=== PATIENT | male | born 1990 | race Caucasian/White ===

== ENCOUNTER 2019-07-13 15:09 | Inpatient (IN) | payer MEDICAID ==
[~2019-07-13] VITALS: Ht 177.8 cm; Wt 81.8 kg
[2019-07-13] MEDS ORDERED: COZAAR50 MG PO (15:16)
[2019-07-13] MEDS ORDERED: NORMODYNE / TR100 MG PO (15:16)
[2019-07-13] MEDS ORDERED: INDIGESTION MED (15:17)
[2019-07-13 16:17] LABS: BASOPHILS 0.2 % (0-2); EOSINOPHILS 4.4 % (0-7); HEMATOCRIT 50.1 % (42.0-54.0); HEMOGLOBIN 17.3 g/dL (13.5-17.5); IMMATURE GRANULOCYTES 0.2 % (0-5); LYMPHOCYTES 37.4 % (15-50); MCH 31.5 pg (26.0-34.0); MCHC 34.5 g/dL (31.0-37.0); MCV 91.1 fL (80.0-100.0); MEAN PLATELET VOLUME 10.5 fL (7.4-10.4); MONOCYTES 4.6 % (2-11); NEUTROPHILS 53.2 % (40-80); PLATELET COUNT 181 10x3/uL (130-400); RDW 12.7 % (11.5-14.5); WBC 6.6 10x3/uL (4.8-10.8)
[2019-07-13 16:30] LABS: CALC OSMOLALITY 280 mosm/kg (275-300); CALCIUM 9.3 mg/dL (8.5-10.1); CARBON DIOXIDE 29.3 mmol/L (21.0-32.0); CHLORIDE - SERUM 101 mmol/L (98-107); GLUCOSE 189 mg/dL (74-106); POTASSIUM - SERUM 3.8 mmol/L (3.5-5.1); SODIUM 139 mmol/L (136-145); UREA NITROGEN 8 mg/dL (7-18); eGFR NON AFRICAN AMERICAN > 90 mL/min (90-120)
[2019-07-13 16:37] LABS: ALBUMIN 4.1 g/dL (3.4-5.0); ALKALINE PHOSPHATASE 126 U/L (46-116); ALT (SGPT) 182 U/L (10-68); PROTEIN - SERUM 7.8 g/dL (6.4-8.2)
[2019-07-13 16:38] LABS: C-REACTIVE PROTEIN 0.9 mg/dL (0.0-0.9); CKMB 0.5 U/L (0.0-3.6); CREATINE KINASE 104 UL (21-232)
[2019-07-13 16:40] LABS: TROPONIN-I < 0.017 ng/mL (0.000-0.060)
--- NOTE | 2019-07-13 16:45 | NUR ---
PT PRESENTED TO ED WITH AN 18 G TO THE LEFT FOREARM - SALINE LOCKED A AND AN 18 G SALINE LOCKED TO THE RIGHT FOREARM
[2019-07-13] MEDS ORDERED: DIOVAN320 MG PO (16:58)
[2019-07-13] MEDS ORDERED: PROTONIX40 MG PO (16:59)
[2019-07-13] MEDS ORDERED: VALSARTAN-HCTZ1 EAC2 PO (17:00)
--- NOTE | 2019-07-13 17:00 | NUR ---
RECEIVED PT FROM ER TO ROOM 2122 VIA W/C AAOX4 RESP UNLABORED SKIN W/D COLOR WNL TELEMETRY SHOWS SR RATE 81 PT DENIES ANY CHEST PAIN AT THIS TIME SALINE LOCK INTACT TO LAC AND RFA WITH IV SITES FREE OF REDNESS OR EDEMA BOTH COVERED WITH OCCLUSIVE DRSGS WILL CONTINUE TO MONITOR
[2019-07-13 17:13] LABS: APTT 36.4 SECONDS (22.8-39.4); PROTIME 13.7 SECONDS (11.6-15.0)
[2019-07-13 17:14] LABS: D-DIMER-QUANTITATIVE < 0.27 ug/mLFEU (0.20-0.54)
[2019-07-13 17:16] LABS: ERYTHROCYTE SEDIMENTATION RATE 4 mm/hr (0-15)
[2019-07-13 17:20] VITALS: BP 146/73; Ht 177.8 cm; Wt 81.8 kg
--- NOTE | 2019-07-13 19:30 | NUR ---
REPORT AND INITIAL ROUNDS COMPLETED. PT RESTING IN BED WITH AT BEDSIDE. ALERT/ORIENTED. SR PER TELEMETRY. NONLABORED RESPIRATIONS. CPOC.
[2019-07-13 20:00] VITALS: BP 158/82
--- NOTE | 2019-07-13 20:30 | NUR ---
PT C/O CHEST TIGHTNESS. DOES NOT WANT IV MORPHINE OR ANY "STRONG" PAIN MEDS. SR PER TELEMETRY. WILL FOLLOW UP WITH LACQUER MIXER.
--- NOTE | 2019-07-13 22:04 | NUR ---
PAGE TO [facility], PT WITH C/O CHEST TIGHTNESS, BUT DOES NOT WANT TO TAKE ANY STRONG NARCOTICS. HE DID TAKE TYLENOL EARLIER FOR HEADACHE RELATED TO NITRO HE TOOK IN ER. STILL HAS HEADACHE. ORDER RECIEVED TO ADMINISTER TORADOL 20MG IV AND MONITOR RESPONSE.
--- NOTE | 2019-07-13 23:05 | NUR ---
MEDICATED WITH TORADOL IV FOR CHEST PRESSURE/TIGHTNESS.
[2019-07-14 00:30] VITALS: BP 141/88
[2019-07-14 04:30] VITALS: BP 139/84
[2019-07-14 05:39] LABS: BASOPHILS 0.3 % (0-2); EOSINOPHILS 6.5 % (0-7); HEMATOCRIT 47.8 % (42.0-54.0); HEMOGLOBIN 16.3 g/dL (13.5-17.5); IMMATURE GRANULOCYTES 0.1 % (0-5); LYMPHOCYTES 39.9 % (15-50); MCH 31.8 pg (26.0-34.0); MCHC 34.1 g/dL (31.0-37.0); MONOCYTES 5.4 % (2-11); NEUTROPHILS 47.8 % (40-80); PLATELET COUNT 172 10x3/uL (130-400); RBC 5.13 10x6/uL (4.20-6.10); RDW 12.8 % (11.5-14.5); WBC 6.9 10x3/uL (4.8-10.8)
[2019-07-14 05:43] LABS: MCV 93.2 fL (80.0-100.0)
[2019-07-14 06:15] LABS: ALBUMIN 3.2 g/dL (3.4-5.0); ALKALINE PHOSPHATASE 113 U/L (46-116); BILIRUBIN - TOTAL 0.57 mg/dL (0.2-1.3); CALCIUM 8.5 mg/dL (8.5-10.1); CARBON DIOXIDE 26.6 mmol/L (21.0-32.0); CHLORIDE - SERUM 100 mmol/L (98-107); CKMB 0.5 U/L (0.0-3.6); CREATINE KINASE 123 UL (21-232); CREATININE - SERUM 0.8 mg/dL (0.6-1.3); POTASSIUM - SERUM 3.7 mmol/L (3.5-5.1); SODIUM 137 mmol/L (136-145); eGFR NON AFRICAN AMERICAN > 90 mL/min (90-120)
[2019-07-14 06:17] LABS: ALT (SGPT) 12 U/L (10-68); CALC OSMOLALITY 281 mosm/kg (275-300); GLUCOSE 261 mg/dL (74-106); PROTEIN - SERUM 7.1 g/dL (6.4-8.2); TROPONIN-I < 0.017 ng/mL (0.000-0.060); UREA NITROGEN 11 mg/dL (7-18)
[2019-07-14 07:56] VITALS: BP 173/105
--- NOTE | 2019-07-14 09:00 | NUR ---
AMBULATING HALLWAY. GAIT STEADY.
--- NOTE | 2019-07-14 09:30 | NUR ---
B/P REPORTED TO DR. CAMP. NEW ORDERS GIVEN.
[2019-07-14] MEDS ORDERED: DIOVAN320 MG PO (11:10)
[2019-07-14 11:18] VITALS: BP 139/82
--- NOTE | 2019-07-14 12:16 | NUR ---
IV AND TELEMETRY DCD. DC PLANS GIVEN. UNDERSTANDING VOICED.
--- NOTE | 2019-07-15 10:31 | MORECARE ---
CASE MANAGEMENT DISCHARGE SUMMARY PATIENT: AV LORD UNIT: [id number] ADM DATE: 07/13/19 AGE: 29 : 86 SEX: M ROOM/BED: D.8123 AUTHOR: ARLEY,DOC PHYSICIAN: REFERRING PHYSICIAN: GISSEL GIRALDO MD DATE OF SERVICE: 07/15/19 Discharge Plan Patient Name: AV LORD Facility: [facility]:[place]oa[place] : 1990 Planned Disposition: Home Anticipated Discharge Date: Discharge Date: 07/14/2019 Expected LOS: Initial Reviewer: [email or web address] Initial Review Date: 07/14/2019 Generated: 07/15/19 11:30 am Comments DCP- Discharge Planning Updated by [id number]: Marsha Biswas on 07/15/19 9:[address] LATE ENTRY 07/14/19 Patient Name: AV LORD Admission Status: ER Accout number: [id number] Admission Date: 07-13-2019 : 1990 Admission Diagnosis: Attending: GISSEL GIRALDO Current LOS: 1 Anticipated DC Date: Planned Disposition: Home Primary Insurance: [place] [employer] [place] Discharge Planning Comments: CM met with patient at bedside after explaining CM role and obtaining verbal consent. Patient lives at home with his where he is independent with his care and plans to return there upon discharge. Patient feels this would be a safe discharge. CM discussed availability / needs of home health and medical equipment. Patient denies any discharge needs at this time. Patient states he will have his family drive him home upon discharge. CM will continue to follow and assist as needed with discharge planning / needs. [employer]: Marsha Biswas DCPIA - Discharge Planning Initial Assessment Updated by [email or web address]: Marhsa Biswas on 07/15/19 10:26 am * Is the patient Alert and Oriented? Yes * How many steps to enter\exit or inside your home? * Pharmacy [facility] * Preadmission Environment Home with Family * ADLs Independent * Equipment None * List name and contact numbers for known caregivers / representatives who currently or will assist patient after discharge: NENITA LORD - [phone] * Verbal permission to speak to the caregivers and representatives has been obtained from the patient. Yes * Community resources currently utilized None * Additional services required to return to the preadmission environment? No * Can the patient safely return to the preadmission environment? Yes * Has this patient been hospitalized within the prior 30 days at any hospital? No Patient Name: AV LORD Page [id number] at 1031 All edits/amendments must be made on the electronic document DICTATION DATE: 07/15/19 103 RETAIL SUPPORT SPECIALIST: LAWSON 07/15/19 1030 RPT#: [id number] DC DATE:07/14/19 STATUS: DIS IN [facility] [address] [place] [address] END OF REPORT
== END 2019-07-14 12:17 | disposition home or self-care (01) | DRG 315 ==
LOC: D.ER 15:09 → D.M2 15:56 → OBSVTIME 15:56 → D.M2 16:00
PROVIDERS: Family Medicine; ADMIT Family Medicine; ATTEND Family Medicine
DX: R94.31 Abnormal electrocardiogram [ECG] [EKG] (principal); F17.213 Nicotine dependence, cigarettes, with withdrawal; I10 Essential (primary) hypertension; K21.9 Gastro-esophageal reflux disease without esophagitis; R42 Dizziness and giddiness